=== PATIENT | female | born 1980 | race African-American/Black ===

== ENCOUNTER 2018-03-15 14:05 | Inpatient (IN) | payer OTHER, MEDICAID, SELFPAY ==
[2018-03-15 14:56] LABS: Add Manual Diff / Slide Review NO; Basophils Percent Auto 0.6 % (0-2); Eosinophils Percent Auto 0.5 % (2-4); Hematocrit 34.2 % (36-46); Hemoglobin 11.6 g/dL (12.0-16.0); Lymphocytes Percent Auto 11.2 % (25-40); Mean Corpuscular HGB Conc 33.9 % (30-36); Mean Corpuscular Hemoglobin 26.4 PG (26-34); Mean Corpuscular Volume 77.9 fL (80-100); Monocytes Percent Auto 4.3 % (3-14); Neutrophils Absolute Auto 7000 /uL (3000-5900); Neutrophils Percent Auto 83.4 % (50-75); Platelet Count 218 X10^3/uL (150-400); Red Blood Cell Count 4.39 X10^6/uL (4.0-5.2); Red Cell Distribution Width 15.2 % (11.6-14.8); White Blood Cell Count 8.4 X10^3/uL (4.5-11.0)
--- NOTE | 2018-03-15 15:15 | PM.OBHP.1 ---
OB HPI Date/Time Date of admission: 03/15/18 Date Patient Seen: 03/15/18 Time Patient Seen: 15:20 History of Present Illness Chief complaint: OBSERVATION OF LABOR : 10 Para: 6 Narrative: RON MARIE is a 37 year old female 10 para 6 living children 5 with no care who presents in active labor. She believe she is 39 weeks gestation. History of Present care: none Ultrasounds: none Obstetrical complications: none Medical complications: none Prior (ies) History: Patient with 10 pregnancies, 6 term with 3 spontaneous abortions, 1 infant of SIDS at 7 months. She states baby weight is were between 7 lb 2 oz and 10 lb 2 oz. She sounds like she had hypertension with her 1st but no problems with her other pregnancies. Evaluation Evaluation Laboratory results: Laboratory Tests 03/15/18 14:45 WBC 8.4 RBC 4.39 Hgb 11.6 L Hct 34.2 L MCV 77.9 L MCH 26.4 MCHC 33.9 RDW 15.2 H Plt Count 218 Neut % (Auto) 83.4 H Lymph % (Auto) 11.2 L [place] % (Auto) 4.3 Eos % (Auto) 0.5 L Baso % (Auto) 0.6 Neut # (Auto) 7000 H PFSH Social History Smoking Status: Unknown if ever smoked alcohol intake: former substance use type: does not use Meds Home Medications Medication Instructions Recorded Confirmed Type No Known Home Medications 03/15/18 03/15/18 History Allergies Allergy/AdvReac Type Severity Reaction Status Date / Time No Known Drug Allergies Allergy Verified 03/15/18 14:53 Review of Systems Review of Systems All systems reviewed & are unremarkable except as noted in HPI and below Exam Vital Signs (past 8 hours): Blood pressure 130/80, pulse of 80, temperature 97.5? Narrative Exam Narrative: HEENT exam within normal limits. Lungs are clear to auscultation and percussion. Heart is regular rate and rhythm, no S3-S4 or murmurs. Abdomen is soft nontender. Fundal height is 33 cm. Cervix is 8 cm dilated, 100% effaced, 0 station. Bag of water intact. Extremities without edema and nontender. Objective Labs Result Diagrams: 03/15/18 14:45 Labs: Laboratory Results - last 24 hr 07/21/18 14:45 WBC 8.4 RBC 4.39 Hgb 11.6 L Hct 34.2 L MCV 77.9 L MCH 26.4 MCHC 33.9 RDW 15.2 H Plt Count 218 Neut % (Auto) 83.4 H Lymph % (Auto) 11.2 L [place] % (Auto) 4.3 Eos % (Auto) 0.5 L Baso % (Auto) 0.6 Neut # (Auto) 7000 H Assessment and Plan (1) No care in current : Current visit: Yes Status: Acute Plan: Plan: Patient arrived on Labor and delivery in active labor with no care. Labs were drawn and group B strep culture performed. Antibiotics were not given due to the fact that it is unlikely that she will not deliver quickly. Anticipate vaginal delivery of hopefully term fetus. Laborer Drying Department is notified of patient on unit.
[2018-03-15 15:40] VITALS: BP 130/80
--- NOTE | 2018-03-15 16:39 | PM.OBPRVD ---
Events: No Care Delivery date: 03/15/18 Intrapartal events: None Delivery monitor: external FHT and external uterine Route of delivery: Laceration description: None Estimated blood loss (mL): 100 Anesthesia type: None Complications: none Narrative: Patient arrived on Labor and delivery in active labor. She progressed quickly. AROM attempt just prior to delivery had some bloody fluid only. The patient delivered spontaneously, over an intact perineum, a viable male , with a nuchal cord x1, who was placed immediately on the maternal abdomen. Fluid remained clear with blood. After the cord stopped pulsating the cord was clamped, cut, and cord bloods obtained. The placenta delivered spontaneously, intact, with 3 vessels. There were no cervical, vaginal, or perineal tears. Estimated blood loss 100 cc. Both mother doing well. Baby 1: gender: Male Presentation: vertex Placenta delivery description: Spontaneous cord vessel description: Nuchal Cord score (1 min): 8 score (5 min): 9 Plan for aftercare: Routine care. Social work consult for no care.
[2018-03-15 17:10] LABS: Urine Amphetamines Positive (Negative); Urine Barbiturates Negative (Negative); Urine Benzodiazepines Negative (Negative); Urine Cocaine Negative (Negative); Urine MDMA Negative (Negative); Urine Methadone Negative (Negative); Urine Methamphetamines Positive (Negative); Urine Morphine/Opi cutoff 2000 Negative (Negative); Urine Oxycodone Negative (Negative); Urine Phencyclidine Negative (Negative); Urine Tetrahydrocannabinol Negative (Negative); Urine Tricyclic Antidepressant Negative (Negative)
[2018-03-15 17:27] LABS: Strep Grp B PCR NEG for Grp B Strep
[2018-03-15 17:32] LABS: Add Manual Diff / Slide Review NO; Basophils Percent Auto 0.4 % (0-2); Eosinophils Percent Auto 0.2 % (2-4); Hematocrit 34.6 % (36-46); Hemoglobin 11.8 g/dL (12.0-16.0); Lymphocytes Percent Auto 8.6 % (25-40); Mean Corpuscular HGB Conc 34.1 % (30-36); Mean Corpuscular Hemoglobin 26.7 PG (26-34); Mean Corpuscular Volume 78.3 fL (80-100); Monocytes Percent Auto 3.3 % (3-14); Neutrophils Absolute Auto 8000 /uL (3000-5900); Neutrophils Percent Auto 87.5 % (50-75); Platelet Count 206 X10^3/uL (150-400); Red Blood Cell Count 4.42 X10^6/uL (4.0-5.2); Red Cell Distribution Width 15.4 % (11.6-14.8); White Blood Cell Count 9.2 X10^3/uL (4.5-11.0)
[2018-03-15 18:32] LABS: Hepatitis B Surface Antigen NEGATIVE s/c (NEGATIVE); Rubella Antibody IgG 16.4 IU/mL (>15)
[2018-03-15 18:54] LABS: HIV 1 and 2 Antibody NEGATIVE (NEGATIVE)
[2018-03-16 05:19] LABS: Add Manual Diff / Slide Review NO; Basophils Percent Auto 0.5 % (0-2); Eosinophils Percent Auto 0.6 % (2-4); Hematocrit 34.3 % (36-46); Hemoglobin 11.5 g/dL (12.0-16.0); Lymphocytes Percent Auto 16.1 % (25-40); Mean Corpuscular HGB Conc 33.5 % (30-36); Mean Corpuscular Hemoglobin 25.9 PG (26-34); Mean Corpuscular Volume 77.2 fL (80-100); Monocytes Percent Auto 6.1 % (3-14); Neutrophils Absolute Auto 7100 /uL (3000-5900); Neutrophils Percent Auto 76.7 % (50-75); Platelet Count 227 X10^3/uL (150-400); Red Blood Cell Count 4.44 X10^6/uL (4.0-5.2); Red Cell Distribution Width 15.2 % (11.6-14.8); White Blood Cell Count 9.3 X10^3/uL (4.5-11.0)
--- NOTE | 2018-03-16 10:48 | PM.OBPN.1 ---
Subjective - OB Patient comments: no complaints baby status: other ( is not sucking well otherwise is stable, no evidence of drug withdrawal.) feeding status: exclusively bottle feeding Narrative: Patient denies headaches, scotoma, epigastric pain. She denies any pain. Patient continues to deny drug use during the . Date Patient Seen: 03/16/18 Time Patient Seen: 10:48 Exam Vital Signs (past 8 hours): Blood pressure 129/83, temperature 98.3?, pulse of 93 Narrative Exam Narrative: Abdomen is soft, nontender. Uterus is firm, at U, nontender. Mild lochia. Extremities without edema nontender. Objective Labs Result Diagrams: 03/16/18 05:07 Labs: Laboratory Results - last 24 hr 03/15/18 03/15/18 03/15/18 14:45 14:45 15:59 WBC 8.4 RBC 4.39 Hgb 11.6 L Hct 34.2 L MCV 77.9 L MCH 26.4 MCHC 33.9 RDW 15.2 H Plt Count 218 Neut % (Auto) 83.4 H Lymph % (Auto) 11.2 L Millard % (Auto) 4.3 Eos % (Auto) 0.5 L Baso % (Auto) 0.6 Neut # (Auto) 7000 H Urine Opiates Screen Ur Oxycodone Screen Urine Methadone Screen Ur Barbiturates Screen U Tricyclic Antidepress Ur Phencyclidine Scrn Ur Amphetamines Screen U Methamphetamines Scrn Ur MDMA Scrn (Ecstasy) U Benzodiazepines Scrn Urine Cocaine Screen U Marijuana (THC) Screen Hep Bs Antigen HIV 1&2 Antibody Rubella Antibody Group B Strep (PCR) Neg for grp b strep Blood Type B Positive Antibody Screen Negative 03/15/18 03/15/18 03/15/18 17:00 17:10 17:10 WBC 9.2 RBC 4.42 Hgb 11.8 L Hct 34.6 L MCV 78.3 L MCH 26.7 MCHC 34.1 RDW 15.4 H Plt Count 206 Neut % (Auto) 87.5 H Lymph % (Auto) 8.6 L Millard % (Auto) 3.3 Eos % (Auto) 0.2 L Baso % (Auto) 0.4 Neut # (Auto) 8000 H Urine Opiates Screen Negative Ur Oxycodone Screen Negative Urine Methadone Screen Negative Ur Barbiturates Screen Negative U Tricyclic Antidepress Negative Ur Phencyclidine Scrn Negative Ur Amphetamines Screen Positive H U Methamphetamines Scrn Positive H Ur MDMA Scrn (Ecstasy) Negative U Benzodiazepines Scrn Negative Urine Cocaine Screen Negative U Marijuana (THC) Screen Negative Hep Bs Antigen Negative HIV 1&2 Antibody Negative Rubella Antibody 16.4 Group B Strep (PCR) Blood Type Antibody Screen 03/16/18 05:07 WBC 9.3 RBC 4.44 Hgb 11.5 L Hct 34.3 L MCV 77.2 L MCH 25.9 L MCHC 33.5 RDW 15.2 H Plt Count 227 Neut % (Auto) 76.7 H Lymph % (Auto) 16.1 L Millard % (Auto) 6.1 Eos % (Auto) 0.6 L Baso % (Auto) 0.5 Neut # (Auto) 7100 H Urine Opiates Screen Ur Oxycodone Screen Urine Methadone Screen Ur Barbiturates Screen U Tricyclic Antidepress Ur Phencyclidine Scrn Ur Amphetamines Screen U Methamphetamines Scrn Ur MDMA Scrn (Ecstasy) U Benzodiazepines Scrn Urine Cocaine Screen U Marijuana (THC) Screen Hep Bs Antigen HIV 1&2 Antibody Rubella Antibody Group B Strep (PCR) Blood Type Antibody Screen Assessment & Plan (1) Normal spontaneous vaginal delivery: Status: Acute Current Visit: Yes (2) No care in current : Status: Acute Current Visit: Yes (3) Methamphetamine use: Problem details: Baby has been put on medical hold until evaluation for safety of the baby Status: Acute Current Visit: Yes Plan day: 1 plan OB: routine care Comments: Social work has been to see patient. Discharge pending evaluation of home environment. Time Spent With Patient Total time spent is greater than 50% in coordination of care (as documented) at patient's floor/unit and/or counseling patient: less than 15 minutes
--- NOTE | 2018-03-16 15:43 | CM.SWNOTE ---
SW Consult Note: MomCynthia, is a 39 yo female, currently residing in [place]. Mom lives with her boyfriend and FOB, Mateo Andrews, they have one other child together, 2 yo Angel. Baby jaleel Gaxiola was born healthy on 03/15/18, Apgars 8,9 weighing approx 6lbs 13oz. Stool sample was taken and sent (awaiting results) per RN; urine sample taken today was positive for Meth. This MUSICAL PERFORMER entered room, mom wakes up and sits up, makes good eye contact throughout our conversation. Baby has been out at [facility] for [employer], according to RN report. Baby boy formula fed d/t +Meth. According to conversation w/mom: She, FOB Mateo and dtr Angel moved to [place] from [place] in May 2017 to live closer to Mateo's ex, Sandra. ARTUR is 42 yo, has two other children, different mothers. Mom has been 10 times; all unplanned. 3 abortions (per notes), one 7 mo from SIDS, 4 children, 14,10,8,7yo living w/her mom in [place] (two different dads, not involved). Mom works survey party chief at [employer] and FOB works at the [employer]. Mom explains they needed to live at a motel for [employer] because they did not have good enough credit to secure a rental. Mom tends to downplay concerns about no care. Mom explains she didn't have insurance for either her dtr or herself because she lost her dtr's Cert and everything costs money. Mom states there are many people that made her feel badly about not getting care but she had been many times and felt she would be okay without. Re: h/o D/A use; mom denies current drug or alcohol use. Mom confirms drug use in the distant past and states I don't want to go over that, sorry. Discussed positive Meth on tox screen, mom continues to deny and states she took Benadryl and another OTC antihistamine for a spider bite. Mom denies any need for resources and states she and FOB have access to food, transportation, clothing/housing and have a car seat ready and can purchase formula. Mom's goal is to take baby boy (name TBD) and likely return to work in another week or two because I have to do what I have to do. Either Mom or FOB are home w/ dtr Angel when the other is working, or Sandra helps babysit. Reviewed Control options and encouraged discussion w/ Dr Short. Mom admits that she has involvement w/ CPS, both here in [place] and in [place]. Mom doesn't want to take about involvement in [place] that's no ones business. Mom states a report was made [facility] that Angel was left alone all day crying, and that was a lie. TC placed to CPS to make referral and update that baby was placed on a medical hold. Mom has Delfin Dowell already assigned and either she or another CPS investigator operator will contact staff tomorrow to arrange visit. staff aware. Shiloh Galdamez, MUSICAL PERFORMER Discharge Planning/Care Management [employer] Secretary Consult Start: 03/16/18 15:38 Freq: Status: Active Protocol: Document 03/16/18 15:39 WILVER (Rec: 03/16/18 15:43 WILVER [id number]) Board [employer] Secretary Consult MUSICAL PERFORMER Assessment Type Substance Abuse Other Reason for MUSICAL PERFORMER Referral BC referral; Mom with no care and positive tox screen for Meth Referred by Dr Short Presenting Problem Positive tox screen for Meth while , no care. Home environment may not be safe for baby jaleel Gaxiola . Mental health diagnosis None reported or documented. [facility] check No Relevant Medical History 39 yo w/a total of 10 pregnancies. [address] Short (or abortions? per notes), one 7mo from SIDS, 4 teenagers living with materal grandma in [place]. One 2 yo living w/mom and FOB, one baby boy. Additional Comment CPS called. See note.
--- NOTE | 2018-03-17 08:01 | P.DS_ITS ---
Discharge Providers Date of admission: 03/15/18 18:03 Consults: 03/15/18 18:03 Consult to Director Of Digital Technology Routine Comment: No care Discharge provider: Halima Short MD Discharge Date: 03/17/18 Summary Date Patient Seen: 03/17/18 Time Patient Seen: 07:59 Peripartum Data Delivery Method: Natural Vaginal Laceration description: None Procedures: Vaginal delivery complications: none Discharge Diagnosis (1) Normal spontaneous vaginal delivery: Status: Acute (2) No care in current : Status: Acute (3) Methamphetamine use: Status: Acute Problem Details: Baby has been put on medical hold until evaluation for safety of the baby Status at Discharge Cognitive/behavioral status at discharge: Patient denies pain. She is urinating and ambulating well. She is tolerating regular diet. Functional status at discharge: independent ambulation Overall status at discharge: patient is progressing back to baseline Time Spent with Patient Total time spent providing and/or coordinating discharge services: Less than 30 minutes Objective Labs Result Diagrams: 03/16/18 05:07 Discharge Plan Discharge Plan Patient Disposition: Home, Self-Care Discharge Med Rec/Prescriptions Prescriptions: No Action No Known Home Medications RF: 0 Follow up/Referrals: Halima Short MD [Physician] - 1 Month Provider Discharge Instructions Diet: Regular Activity: Nothing in vagina for 4 weeks Wound Care Report to your healthcare provider any signs of infection, such as:: chills, fever and increased pain Discharge Data Attending Provider: Halima Short Admit Date/Time: 03/15/18 18:03
[2018-03-17] MEDS: DOCUSATE 250 MG CAPSULE PO (08:15)
[2018-03-17] MEDS: PRENATAL VIT,CALC/IRON/FOLIC 1 TABLET 1 TAB PO (08:15)
[2018-03-17 09:31] VITALS: BP 122/80; PULSE 98; RESP 16; TEMP 36.9
--- NOTE | 2018-03-17 12:13 | CM.DPC ---
Addendum entered by ELIN Givens 03/17/18 15:25: Per RN, CPS ALLAN Majo ([phone]) called the Center this morning and requested to speak to MOB via phone but then RN has not heard back from CPS regarding a plan or any bedside meetings. SW attempted to call CPS SW and left msg requesting call back becky regarding plans for MOB or baby and any upcoming meetings. SW requested she call the Center RN with direct update. BF Original Note: DCP Cont: SW called Center RN and confirmed that they are aware that CPS requested medical hold on baby and not to discharge baby with MOB at this time. SW updated that CPS plans to be bedside for further assessment today and per RN CPS has not yet been bedside but they are now aware they will likely be bedside today for assessment. Plan: SW to continue to follow for likely CPS bedside assessment today and medical hold currently has been placed on baby. ELIN Givens
[2018-03-21 09:49] LABS: Rapid Plasma Reagin NON-REACTIVE
== END 2018-03-17 11:10 | disposition home or self-care (01) | DRG 560 ==
PROVIDERS: Admitting Provider Specialist; Visit Provider Specialist
DX: O69.81X0 Labor and delivery complicated by cord around neck, without compression, not applicable or unspecified (principal); Z3A.39 39 weeks gestation of pregnancy; Z37.0 Single live birth; O99.324 Drug use complicating childbirth; F15.90 Other stimulant use, unspecified, uncomplicated
CPT/HCPCS: 36415; 59050; 59409; 76815; 80055; 80305; 85025; 86703; 86850; 86900; 86901; 87653; 99222; 99238; G0378; G0379

== ENCOUNTER 2018-03-19 10:51 | Emergency (ER) | payer OTHER, MEDICAID, SELFPAY ==
[2018-03-19] VITALS (10 sets, daily range): BP systolic 100–119; BP diastolic 58–70; PULSE 94–132; RESP 16–20; TEMP 36.6–38.9; O2SAT 98–100
[2018-03-19] MEDS: ACETAMINOPHEN 325 MG TABLET 975 MG PO (11:05)
[2018-03-19] MEDS: IBUPROFEN 400 MG TABLET 800 MG PO (11:05)
--- NOTE | 2018-03-19 11:29 | DI.RAD.S_ITS ---
PROCEDURE: XR CHEST 1V INDICATIONS: suspected sepsis TECHNIQUE: One view of the chest was acquired. COMPARISON: None. FINDINGS: Surgical changes and devices: None. Lungs and pleura: No pleural effusions or pneumothorax. Linear left basilar opacities, likely atelectasis. Mediastinum: Mediastinal contours appear normal. Heart size is normal. Bones and chest wall: No suspicious bony lesions. Overlying soft tissues appear unremarkable. IMPRESSION: No acute pulmonary process. Dictated by: Ashlyn Aragon M.D. on 03/19/2018 at 12:27 Approved by: Ashlyn Aragon M.D. on 03/19/2018 at 12:28
[2018-03-19] MEDS: SODIUM CHLORIDE 0.9% 1,000 ML 1000 ML IV ×2 (11:32→12:39)
--- NOTE | 2018-03-19 11:36 | DI.US.S_ITS ---
PROCEDURE: US PELVIC COMPLETE INDICATIONS: 5 DAYS POST ; FEVER WITHOUT BLEEDING TECHNIQUE: Real-time scanning was performed of the pelvic organs, with image documentation. Additional endovaginal scanning was necessary due to incomplete visualization of the adnexal and endometrial structures by transabdominal scanning. COMPARISON: None. FINDINGS: Transabdominal scanning: Kidneys were not evaluated. No pathologic free abdominal or pelvic fluid. Endovaginal scanning: Uterus: Uterus is enlarged consistent with status. The uterus measures 8.5 x 16.0 x 22.2 cm. The endometrium measures 6.2 mm in combined thickness. There is no retained products of conception, trace endometrial fluid. A submucosal fibroid is present posteriorly measuring 1.6 x 2.5 x 3.0 cm. Ovaries: Ovaries are nonvisualized IMPRESSION: 1. uterus. No evidence of retained products of conception. 2. A 3 cm submucosal fibroid is noted. 3. Ovaries are nonvisualized. Dictated by: Gino Richey M.D. on 03/19/2018 at 12:04 Approved by: Gino Richey M.D. on 03/19/2018 at 12:09
[2018-03-19 11:40] LABS: Add Manual Diff / Slide Review NO; Basophils Percent Auto 0.3 % (0-2); Hematocrit 32.7 % (36-46); Hemoglobin 11.1 g/dL (12.0-16.0); Lymphocytes Percent Auto 4.3 % (25-40); Mean Corpuscular HGB Conc 33.9 % (30-36); Mean Corpuscular Hemoglobin 26.5 PG (26-34); Mean Corpuscular Volume 78.1 fL (80-100); Monocytes Percent Auto 3.7 % (3-14); Neutrophils Absolute Auto 6300 /uL (3000-5900); Neutrophils Percent Auto 91.7 % (50-75); Platelet Count 218 X10^3/uL (150-400); Red Blood Cell Count 4.18 X10^6/uL (4.0-5.2); Red Cell Distribution Width 15.9 % (11.6-14.8); White Blood Cell Count 6.8 X10^3/uL (4.5-11.0)
--- NOTE | 2018-03-19 11:43 | ED.FEVER ---
HPI - Fever General Chief Complaint: Fever Stated Complaint: headache, hot/cold,fever Time Seen by Provider: 03/19/18 11:00 Source: patient and family Mode of arrival: ambulatory Limitations: no limitations History of Present Illness HPI Narrative: 38-year-old female sent to the emergency department at the request of labor and delivery for evaluation of fever and headache. The patient delivered a healthy child on Saturday vaginal a and started having fever today. She denies any runny nose, sore throat or cough. She has no chest pain or shortness of breath. She denies abdominal pain, pelvic pain nor vaginal bleeding or discharge. She denies dysuria, frequency or urgency. She has no rashes, skin lesions or abscess. MD complaint: fever Onset (ago): hour(s) Temperature Source: oral Associated symptoms: chills and headache Relieving factors: nothing Exacerbating factors: nothing Related Data Previous Rx's Medication Instructions Recorded cephalexin [Keflex] 500 mg PO QID 7 Days #28 cap 03/19/18 Allergies Allergy/AdvReac Type Severity Reaction Status Date / Time No Known Drug Allergies Allergy Verified 03/15/18 14:53 Review of Systems Review of Systems All systems reviewed & are unremarkable except as noted in HPI and below Constitutional Reports chills, Reports fever(s), Reports headache(s), Denies lethargy and Denies weakness Eyes Denies change in vision, Denies eye discharge, Denies irritation and Denies loss of vision ENT Ears, Nose, Mouth, and Throat: Denies change in voice, Reports headache(s), Denies neck pain and Denies sore throat Cardiovascular Denies chest pain, Denies irregular heart rhythm, Denies lightheadedness, Denies palpitations, Denies dyspnea, Denies dyspnea on exertion and Denies orthopnea Respiratory Denies cough, Denies dyspnea, Denies dyspnea on exertion and Denies wheezing Gastrointestinal Gastrointestinal: Denies abdominal pain, Denies change in bowel habits, Denies diarrhea, Denies nausea and Denies vomiting Genitourinary Denies hematuria, Denies flank pain, Denies urinary incontinence and Denies urinary urgency Musculoskeletal Denies neck pain Integumentary/Breasts Denies pruritus, Denies erythema, Denies rash and Denies wounds Neurologic Denies confusion, Reports headache(s), Denies loss of vision and Denies weakness Psychiatric Denies anxiety, Denies confusion, Denies depression, Denies homicidal ideation and Denies suicidal ideation Endocrine Denies palpitations Hematologic/Lymphatic Denies easy bruising Allergic/Immunologic Denies wheezing PFSH Social History Smoking Status: Former smoker alcohol intake: former substance use type: does not use Exam Narrative Exam Narrative: Pleasant 30-year-old female in mild distress, sitting in a dark room Initial Vital Signs Initial Vital Signs: Vital Signs Temperature 102.0 F H 03/19/18 10:54 Pulse Rate 132 H 03/19/18 10:54 Respiratory Rate 20 03/19/18 10:54 Blood Pressure 114/65 03/19/18 10:54 Pulse Oximetry 98 03/19/18 10:54 Const General: cooperative, well developed and in distress Nutritional Appearance: well nourished Orientation: alert, awake, oriented x3 and not confused HENMT Head: normocephalic and atraumatic Ears: external ears normal and TM's normal bilaterally Nose: external nose normal and No nasal discharge Face and sinus: sinuses nontender, face symmetric, no sinus tenderness and No dry mucous membranes Mouth: oral mucosae normal and moist mucous membranes Teeth and gingiva: dentition normal Throat: tonsils normal and uvula midline Eyes General: appearance normal, both eyes and all related structures Eyelids: eyelids normal Conjunctivae: conjunctivae normal Sclera: sclerae normal Pupils: PERRL EOM: EOM intact bilaterally Neck Neck: normal visual inspection, full ROM, trachea midline, No lymphadenopathy, No midline deformity, No positive Brudzinski's sign, No positive Kernig's sign, No tender and No JVD Lymphatic: No lymphedema Chest Chest: normal inspection of the chest Resp Effort & Inspection: normal respiratory effort, able to speak in complete sentences, no respiratory distress and no use of accessory muscles Auscultation: clear to auscultation bilaterally, no rales, no rhonchi and no wheezes Cardio Rate: regular rate Rhythm: regular rhythm Heart Sounds: no click, no gallops, no murmurs and no rubs Pulses: normal peripheral pulses GI Inspection: non-distended Palpation: soft, no hepatosplenomegaly, No guarding, No pulsatile mass and No tender Auscultation: normal bowel sounds Back/Spine/Pelvis Back: No CVA tenderness Cervical Spine: cervical ROM normal and No pain with cervical ROM Thoracic/Lumbar Spine: thoracic and lumbar spine normal to inspection Skin General: no rashes or lesions noted, No jaundice and No petechiae Extrem General: full ROM, no clubbing, cyanosis or edema, no pedal edema and no calf tenderness Course Orders Ordered: ED Orders 03/19/18 11:26 Blood Culture Stat Complete Blood Count AUTO DIFF Stat Comprehensive Metabolic Panel Stat Lactate (Lactic Acid) Stat Lipase Stat Partial Thromboplastin Time Stat Procalcitonin Stat Prothrombin Time INR Stat 03/19/18 11:29 XR chest 1V Stat 03/19/18 11:36 US pelvic complete Stat 03/19/18 12:10 Ictotest Urine Routine 03/19/18 12:18 Urine Microscopic Stat Discontinued Medications Acetaminophen (Tylenol) 975 mg PO NOW ONE Stop: 03/19/18 11:03 Last Admin: 03/19/18 11:05 Dose: 975 mg Sodium Chloride (Normal Saline 0.9%) 1,000 mls @ 1,000 mls/hr IV BOLUS ONE Stop: 03/19/18 12:28 Last Infusion: 03/19/18 12:36 Dose: 0 mls/hr Admin: 03/19/18 11:32 Dose: 1,000 mls/hr Ceftriaxone Sodium/Dextrose (Rocephin) 1 gm in 50 mls @ 100 mls/hr IV NOW ONE Stop: 03/19/18 12:48 Last Infusion: 03/19/18 13:25 Dose: 0 mls/hr Admin: 03/19/18 12:36 Dose: 100 mls/hr Sodium Chloride (Normal Saline 0.9%) 1,000 mls @ 1,000 mls/hr IV BOLUS ONE Stop: 03/19/18 13:36 Last Infusion: 03/19/18 13:50 Dose: 0 mls/hr Admin: 03/19/18 12:39 Dose: 1,000 mls/hr Ibuprofen (Advil) 800 mg PO NOW ONE Stop: 03/19/18 11:03 Last Admin: 03/19/18 11:05 Dose: 800 mg Vital Signs - 8 hr 03/19/18 10:54 03/19/18 11:05 03/19/18 11:36 Temperature 102.0 F H 102 F H Pulse Rate 132 H 118 H Respiratory Rate 20 20 Blood Pressure 114/65 Blood Pressure [Left Arm] 119/69 Pulse Oximetry 98 99 07/25/18 12:14 03/19/18 12:40 03/19/18 12:41 Temperature 98.4 F 98.4 F Pulse Rate 108 H Respiratory Rate 20 Blood Pressure Blood Pressure [Left Arm] 100/66 Pulse Oximetry 99 03/19/18 12:56 03/19/18 12:58 03/19/18 13:09 Temperature 97.9 F Pulse Rate 97 H 94 H Respiratory Rate 18 18 Blood Pressure Blood Pressure [Left Arm] 109/70 103/58 L Pulse Oximetry 99 100 03/19/18 13:51 Temperature 98.2 F Pulse Rate 95 H Respiratory Rate 16 Blood Pressure Blood Pressure [Left Arm] 105/59 L Pulse Oximetry 100 MDM - Fever Lab Data Result diagrams: 03/19/18 11:26 03/19/18 11:26 Lab Results 03/19/18 03/19/18 03/19/18 Range/Units 11:26 11:26 11:26 WBC 6.8 (4.5-11.0) X10^3/uL RBC 4.18 (4.0-5.2) X10^6/uL Hgb 11.1 L (12.0-16.0) g/dL Hct 32.7 L (36-46) % MCV 78.1 L (80-100) fL MCH 26.5 (26-34) PG MCHC 33.9 (30-36) % RDW 15.9 H (11.6-14.8) % Plt Count 218 (150-400) X10^3/uL Neut % (Auto) 91.7 H (50-75) % Lymph % (Auto) 4.3 L (25-40) % [place] % (Auto) 3.7 (3-14) % Eos % (Auto) 0.0 L (2-4) % Baso % (Auto) 0.3 (0-2) % Neut # (Auto) 6300 H (2238-6601) /uL PT 12.7 (10.1-12.7) SECONDS INR 1.2 (0.9-1.3) APTT 25 L (26.4-36.2) SECONDS Sodium (137-145) mmol/L Potassium (3.4-5.1) mmol/L Chloride (98-107) mmol/L Carbon Dioxide (22-32) mmol/L BUN (7-17) mg/dL Creatinine (0.52-1.04) mg/dL Estimated GFR (>60) mL/min BUN/Creatinine Ratio (6-22) Glucose (70-100) mg/dL Lactate (0.7-2.1) mmol/L Calcium (8.4-10.2) mg/dL Total Bilirubin (0.2-1.3) mg/dL AST (14-36) IU/L ALT (9-52) IU/L Alkaline Phosphatase (38-126) U/L Total Protein (6.3-8.2) g/dL Albumin (3.5-5.0) g/dL Globulin (1.7-4.1) g/dL Albumin/Globulin Ratio (1.0-2.8) Lipase (23-300) U/L Procalcitonin 0.36 (<0.5) ng/mL Urine Ictotest (Negative) Urine RBC (0-5/HPF) Urine WBC (0-5/HPF) Ur Squamous Epith Cells Urine Bacteria (None) Ur Culture Indicated? Micro UA Comment 03/19/18 03/19/18 03/19/18 Range/Units 11:26 11:26 12:10 WBC (4.5-11.0) X10^3/uL RBC (4.0-5.2) X10^6/uL Hgb (12.0-16.0) g/dL Hct (36-46) % MCV (80-100) fL MCH (26-34) PG MCHC (30-36) % RDW (11.6-14.8) % Plt Count (150-400) X10^3/uL Neut % (Auto) (50-75) % Lymph % (Auto) (25-40) % [place] % (Auto) (3-14) % Eos % (Auto) (2-4) % Baso % (Auto) (0-2) % Neut # (Auto) (5889-7805) /uL PT (10.1-12.7) SECONDS INR (0.9-1.3) APTT (26.4-36.2) SECONDS Sodium 134 L (137-145) mmol/L Potassium 3.7 (3.4-5.1) mmol/L Chloride 102 (98-107) mmol/L Carbon Dioxide 23 (22-32) mmol/L BUN 10 (7-17) mg/dL Creatinine 0.50 L (0.52-1.04) mg/dL Estimated GFR > 60.0 (>60) mL/min BUN/Creatinine Ratio 20.0 (6-22) Glucose 98 (70-100) mg/dL Lactate 1.3 (0.7-2.1) mmol/L Calcium 8.8 (8.4-10.2) mg/dL Total Bilirubin 0.4 (0.2-1.3) mg/dL AST 26 (14-36) IU/L ALT 20 (9-52) IU/L Alkaline Phosphatase 138 H (38-126) U/L Total Protein 6.7 (6.3-8.2) g/dL Albumin 3.3 L (3.5-5.0) g/dL Globulin 3.4 (1.7-4.1) g/dL Albumin/Globulin Ratio 1.0 (1.0-2.8) Lipase 71 (23-300) U/L Procalcitonin (<0.5) ng/mL Urine Ictotest Negative (Negative) Urine RBC (0-5/HPF) Urine WBC (0-5/HPF) Ur Squamous Epith Cells Urine Bacteria (None) Ur Culture Indicated? Micro UA Comment 03/19/18 Range/Units 12:18 WBC (4.5-11.0) X10^3/uL RBC (4.0-5.2) X10^6/uL Hgb (12.0-16.0) g/dL Hct (36-46) % MCV (80-100) fL MCH (26-34) PG MCHC (30-36) % RDW (11.6-14.8) % Plt Count (150-400) X10^3/uL Neut % (Auto) (50-75) % Lymph % (Auto) (25-40) % [place] % (Auto) (3-14) % Eos % (Auto) (2-4) % Baso % (Auto) (0-2) % Neut # (Auto) (5708-8621) /uL PT (10.1-12.7) SECONDS INR (0.9-1.3) APTT (26.4-36.2) SECONDS Sodium (137-145) mmol/L Potassium (3.4-5.1) mmol/L Chloride (98-107) mmol/L Carbon Dioxide (22-32) mmol/L BUN (7-17) mg/dL Creatinine (0.52-1.04) mg/dL Estimated GFR (>60) mL/min BUN/Creatinine Ratio (6-22) Glucose (70-100) mg/dL Lactate (0.7-2.1) mmol/L Calcium (8.4-10.2) mg/dL Total Bilirubin (0.2-1.3) mg/dL AST (14-36) IU/L ALT (9-52) IU/L Alkaline Phosphatase (38-126) U/L Total Protein (6.3-8.2) g/dL Albumin (3.5-5.0) g/dL Globulin (1.7-4.1) g/dL Albumin/Globulin Ratio (1.0-2.8) Lipase (23-300) U/L Procalcitonin (<0.5) ng/mL Urine Ictotest (Negative) Urine RBC 5-10/hpf H (0-5/HPF) Urine WBC 10-30/hpf H (0-5/HPF) Ur Squamous Epith Cells 10-30 /hpf H Urine Bacteria Many (>30) H (None) Ur Culture Indicated? Cult not indicated Micro UA Comment ... Discharge Plan Departure Patient Disposition: Home, Self-Care Clinical Impression: UTI (urinary tract infection) Discharge Date/Time: 03/19/18 14:02 Interventions: ED Discharge Assessment Last Done: 03/19/18 14:02 Instructions: DI for Urinary Tract Infection (UTI) Activity Restrictions/Additional Instructions: *You have been diagnosed with [ acute UTI ] *What to do: *Take medications as directed *Follow up with your primary care provider in 2-3 days, call for an appointment. Let them know you were seen in the Emergency Department and that we ask that you be seen in follow up *Return to ER if you should have any new, worsening or concerning symptoms, such as [ increasing fever, nausea, vomiting, other bothersome symptoms] Prescriptions: New cephalexin [Keflex] 500 mg capsule 500 mg PO QID 7 Days Qty: 28 RF: 0
[2018-03-19 11:52] LABS: INR 1.2 (0.9-1.3); Prothrombin Time 12.7 SECONDS (10.1-12.7)
[2018-03-19 11:55] LABS: PTT Partial Thromboplastin Tim 25 SECONDS (26.4-36.2)
[2018-03-19 11:58] LABS: Alanine Aminotransferase 20 IU/L (9-52); Albumin 3.3 g/dL (3.5-5.0); Alkaline Phosphatase 138 U/L (38-126); Aspartate Aminotransferase 26 IU/L (14-36); Bilirubin Total 0.4 mg/dL (0.2-1.3); Blood Urea Nitrogen 10 mg/dL (7-17); Calcium 8.8 mg/dL (8.4-10.2); Carbon Dioxide 23 mmol/L (22-32); Chloride 102 mmol/L (98-107); Estimated Glomerular Filt Rate > 60.0 mL/min (>60); Globulin 3.4 g/dL (1.7-4.1); Glucose 98 mg/dL (70-100); HEMOLYSIS 20 (0-50); Lipase 71 U/L (23-300); Potassium 3.7 mmol/L (3.4-5.1); Sodium 134 mmol/L (137-145); Total Protein 6.7 g/dL (6.3-8.2)
[2018-03-19 12:12] LABS: Lactate (Lactic Acid) 1.3 mmol/L (0.7-2.1)
[2018-03-19 12:20] LABS: Procalcitonin 0.36 ng/mL (<0.5)
[2018-03-19] MEDS: CEFTRIAXONE 1 GM/50 ML FROZ.PIGGY IV (12:36)
[2018-03-19 12:43] LABS: RBC Urine 5-10/HPF (0-5/HPF)
[2018-03-19 12:44] LABS: Bacteria Urine Many (>30); Culture Indicated Urine Cult Not Indicated; Squamous Epithelial Cell Urine 10-30 /HPF; WBC Urine 10-30/HPF (0-5/HPF)
[2018-03-19 12:46] LABS: Ictotest Urine Negative (Negative)
== END 2018-03-19 14:02 | disposition home or self-care (01) ==
PROVIDERS: Emergency Provider Emergency Medicine
DX: N39.0 Urinary tract infection, site not specified (principal)
CPT/HCPCS: 36591; 71045; 76856; 80053; 81003; 81015; 83605; 83690; 84145; 85025; 85610; 85730; 87040; 96361; 96365; 99284